=== PATIENT | female | born 1975 | race Caucasian/White ===

== ENCOUNTER 2018-07-16 14:10 | Emergency (ER) | payer BC ==
[2018-07-16 15:02] LABS: BASO % 0.2 % (0-6); GRAN % 63.8 % (47-80); HEMATOCRIT 41.8 % (35.0-47.0); HEMOGLOBIN 13.5 gm/dl (11.6-16.0); LYMPH % 28.5 % (16-45); MEAN CELL VOLUME 85.7 fl (81-97); MEAN CORPUSCULAR HEMOGLOBIN 27.7 pg (27-33); MEAN CORPUSCULAR HGB CONC 32.3 g/dl (32-36); MONO % 7.5 % (0-9); PLATELET COUNT 398 K/uL (130-400); RED BLOOD COUNT 4.88 M/uL (3.80-5.40); RED CELL DISTRIBUTION WIDTH 13.4 % (11.5-14.5); WHITE BLOOD COUNT W/O DIFF 5.5 K/uL (4.2-12.2)
[2018-07-16 15:20] LABS: INFLUENZA A NEGATIVE (NEGATIVE); INFLUENZA B NEGATIVE (NEGATIVE)
[2018-07-16] MEDS ORDERED: KETOROLAC 30 MG/ML VIAL IM ONE (15:30)
--- NOTE | 2018-07-16 15:30 | Emergency Department Record ---
History of Present Illness - General Chief Complaint: Cough Stated Complaint: HURTS TO COUGH Time Seen by Provider: 07/16/18 14:37 Source: Patient Mode of Arrival: Ambulatory Limitations: No limitations - History of Present Illness Initial Comments: pt has had a cough for a month that is getting worse. it hurts to cough. cough is productive a small amt. she has sinus congestion MD Complaint: Cough, Nasal congestion, Sinus pain Onset/Timin -: Days(s) Severity: Moderate Severity scale (1-10): 7 Quality: Burning Consistency: Constant Improves With: Nothing Worsens With: Deep breaths Context: Sick contacts Associated Symptoms: Chills, Cough, Nasal congestion, Shortness of breath - Related Data Home Medications Medication Instructions Recorded Confirmed Last Taken Ibuprofen [Ibu] 600 mg PO Q6H PRN 07/16/18 Unknown Vilazodone HCl [Viibryd] 40 mg PO DAILY 07/16/18 07/16/18 07/16/18 Previous Rx's Medication Instructions Recorded Azithromycin [Zithromax] 250 mg PO DAILY #6 tab 07/16/18 Ibuprofen [Motrin 600Mg] 600 mg PO Q6H #20 tablet 07/16/18 Allergies Allergy/AdvReac Type Severity Reaction Status Date / Time aspirin Allergy HIVES Verified 07/16/18 14:15 ciprofloxacin [From Cipro] Allergy HIVES Verified 07/16/18 14:15 ciprofloxacin HCl Allergy HIVES Verified 07/16/18 14:15 [From Cipro] Penicillins Allergy HIVES Verified 07/16/18 14:15 Sulfa (Sulfonamide Allergy HIVES Verified 07/16/18 14:15 Antibiotics) Travel Screening - Travel/Exposure Within Last 30 Days Have you traveled within the last 30 days?: No - Travel/Exposure Within Last Year Have you traveled outside the [place] in the last year?: No - Additonal Travel Details Have you been exposed to anyone with a communicable illness?: No - Travel Symptoms Symptom Screening: None Review of Systems Reviewed: No additional complaints except as noted below Constitutional: Reports: As per HPI. Denies: Chills, Fever, Malaise, Night sweats, Weakness, Weight change Eyes: Reports: As per HPI. Denies: Eye discharge, Eye pain, Photophobia, Vision change ENT: Reports: As per HPI. Denies: Congestion, Dental pain, Ear pain, Epistaxis , Hearing loss, Throat pain Respiratory: Reports: As per HPI, Cough, Dyspnea. Denies: Hemoptysis, Stridor, Wheezes Cardiovascular: Reports: As per HPI. Denies: Arrhythmia, Chest pain, Dyspnea on exertion, Edema, Murmurs, Orthopnea, Palpitations, Paroxysmal nocturnal dyspnea, Rheumatic Fever, Syncope Endocrine: Reports: As per HPI. Denies: Fatigue, Heat or cold intolerance, Polydipsia, Polyuria Gastrointestinal: Reports: As per HPI. Denies: Abdominal pain, Constipation, Diarrhea, Hematemesis, Hematochezia, Melena, Nausea, Vomiting Genitourinary: Reports: As per HPI. Denies: Abnormal menses, Discharge, Dyspareunia, Dysuria, Frequency, Hematuria, Incontinence, Retention, Urgency Musculoskeletal: Reports: As per HPI. Denies: Arthralgia, Back pain, Gout, Joint swelling, Myalgia, Neck pain Skin: Reports: As per HPI. Denies: Bruising, Change in color, Change in hair/ nails, Lesions, Pruritus, Rash Neurological: Reports: As per HPI. Denies: Abnormal gait, Confusion, Headache, Numbness, Paresthesias, Seizure, Tingling, Tremors, Vertigo, Weakness Psychiatric: Reports: As per HPI. Denies: Anxiety, Auditory hallucinations, Depression, Homicidal thoughts, Suicidal thoughts, Visual hallucinations Hematological/Lymphatic: Reports: As per HPI. Denies: Anemia, Blood Clots, Easy bleeding, Easy bruising, Swollen glands Past Medical History - SOCIAL HISTORY Smoking Status: Never smoker Alcohol Use: None Drug Use: None - RESPIRATORY Hx Respiratory Disorders: No - CARDIOVASCULAR Hx Cardio Disorders: No - NEURO Hx Neuro Disorders: No - GI Hx GI Disorders: No - Hx Genitourinary Disorders: No - ENDOCRINE Hx Endocrine Disorders: Yes Hx Thyroid Disease: Yes - MUSCULOSKELETAL Hx Musculoskeletal Disorders: Yes Comment:: neck injury - PSYCH Hx Psych Problems: Yes Hx Depression: Yes - HEMATOLOGY/ONCOLOGY Hx Hematology/Oncology Disorders: No Family Medical History Any Significant Family History?: Yes Hx HTN: Mother Hx Resp Disorders: Mother Physical Exam - General General Appearance: Alert, Oriented x3, Cooperative, Mild distress - Head Head exam: Normal inspection - Eye Eye exam: Normal appearance, PERRL, EOMI Pupils: Normal accommodation - ENT ENT exam: Normal exam, Mucous membranes moist, Normal external ear exam, Normal orophraynx, TM's normal bilaterally Ear exam: Normal external inspection. negative: External canal tenderness Nasal Exam: Normal inspection. negative: Discharge, Sinus tenderness Mouth exam: Normal external inspection, Tongue normal Teeth exam: Normal inspection. negative: Dental caries Throat exam: Normal inspection. negative: Tonsillar erythema, Tonsillar exudate - Neck Neck exam: Normal inspection, Full ROM. negative: Tenderness - Respiratory Respiratory exam: Normal lung sounds bilaterally. negative: Respiratory distress - Cardiovascular Cardiovascular Exam: Regular rate, Normal rhythm, Normal heart sounds - GI/Abdominal GI/Abdominal exam: Soft, Normal bowel sounds. negative: Tenderness - Rectal Rectal exam: Deferred - exam: Deferred - Extremities Extremities exam: Normal inspection, Full ROM, Normal capillary refill. negative: Tenderness - Back Back exam: Reports: Normal inspection, Full ROM. Denies: Muscle spasm, Rash noted, Tenderness - Neurological Neurological exam: Alert, CN II-XII intact, Normal gait, Oriented X3 - Psychiatric Psychiatric exam: Normal affect, Normal mood - Skin Skin exam: Dry, Intact, Normal color, Warm Course Vital Signs 07/16/18 14:19 Temperature 98.3 F Pulse Rate 70 Respiratory 20 Rate Blood Pressure 137/83 Pulse Ox 97 Medical Decision Making - Lab Data Result diagrams: 07/16/18 14:55 Lab Results 07/16/18 07/16/18 Range/Units 14:55 14:55 WBC 5.5 (4.2-12.2) K/uL RBC 4.88 (3.80-5.40) M/uL Hgb 13.5 (11.6-16.0) gm/dl Hct 41.8 (35.0-47.0) % MCV 85.7 (81-97) fl MCH 27.7 (27-33) pg MCHC 32.3 (32-36) g/dl RDW 13.4 (11.5-14.5) % Plt Count 398 (130-400) K/uL MPV 9.0 (7.4-10.4) fl Gran % 63.8 (47-80) % Lymphocytes % 28.5 (16-45) % Monocytes % 7.5 (0-9) % Eosinophils % 0.0 (0-6) % Basophils % 0.2 (0-6) % Influenza Type A Ag Negative (NEGATIVE) Influenza Type B Ag Negative (NEGATIVE) Disposition Disposition: Discharge Clinical Impression: Pneumonia Qualifiers: Pneumonia type: due to unspecified organism Laterality: bilateral Lung location : unspecified part of lung Qualified Code(s): J18.9 - Pneumonia, unspecified organism Disposition: Home, Self-Care Condition: (1) Good Instructions: Pneumonia (ED) Additional Instructions: follow up with family doctor. return sooner if worse. push fluids. motrin with food for pain. have repeat chest xray in 4 wks to make sure pneumonia has resolved and that there is no residual findings Prescriptions: Azithromycin [Zithromax] 250 mg PO DAILY #6 tab Ibuprofen [Motrin 600Mg] 600 mg PO Q6H #20 tablet Forms: Patient Portal Access Quality - Quality Measures Quality Measures: N/A - Blood Pressure Screening Does Patient Have Any of the Following: No Blood Pressure Classification: Pre-Hypertensive BP Reading Systolic Measurement: 137 Diastolic Measurement: 83 Screening for High Blood Pressure: < Pre-Hypertensive BP, F/U Documented > [ G8950] Pre-Hypertensive Follow-up Interventions: Follow-up with rescreen every year.
--- NOTE | 2018-07-18 20:23 | RADIOLOGY REPORT ---
EXAM: CHEST 2 VIEWS HISTORY: PATIENT HAS A HISTORY OF COUGH. TECHNIQUE: Two views of the chest are provided along with a comparison study dated 04/13/2014. FINDINGS: The cardiomediastinal silhouette is within normal limits for size and contour. Symone appear unremarkable. Patchy infiltrates are identified within the right upper and right lower lobes. No pneumothorax is noted. No pleural effusions are identified. IMPRESSION: PATCHY INFILTRATES ARE IDENTIFIED WITHIN THE RIGHT UPPER AND RIGHT LOWER LOBE SUGGESTING PNEUMONIA. FOLLOW-UP PA AND LATERAL VIEWS OF THE CHEST CAN BE OBTAINED UNTIL RESOLUTION OF FINDINGS. JOB NUMBER: [id number] [facility]
== END 2018-07-16 16:00 | disposition home or self-care (01) ==
LOC: ER 14:10
DX: J18.1 Lobar pneumonia, unspecified organism (principal)
CPT/HCPCS: 71046; 85025; 87400; 96372; 99283; 99284; J1885

== ENCOUNTER 2018-10-06 19:31 | Emergency (ER) | payer BC ==
[2018-10-06] MEDS ORDERED: KETOROLAC 30 MG/ML VIAL IVP ONE (19:47)
--- NOTE | 2018-10-06 19:53 | Emergency Department Record ---
History of Present Illness - General Chief Complaint: Abdominal Pain Stated Complaint: ABD PAIN Time Seen by Provider: 10/06/18 19:46 Source: Patient Mode of Arrival: Ambulatory Limitations: No limitations - History of Present Illness Initial Comments: 43 yo female presents to ED for progressively worsening lower abdominal pain symptoms that began 5 days ago. Patient denies fevers, chills, or urinary symptoms, denies nausea/vomiting symptoms. Patient describes her symptoms as "cramping", denies flank pain symptoms. Patient reports previous history of c- section x 1, D&C x 2, denies other abdominal surgeries. Patient has been taking Ibuprofen and Onemo with some improvement in her pain symptoms. MD Complaint: Abdominal pain Onset/Timin -: Days(s) Location: Suprapubic, LLQ, RLQ Radiation: Back Severity: Moderate Severity scale (1-10): 8 Quality: Cramping Consistency: Constant Improves With: Nothing Worsens With: Other Context: Other Associated Symptoms: Denies other symptoms - Related Data LMP (females 10-50): Current Patient : No Previous Rx's Medication Instructions Recorded Naproxen [Naprosyn] 500 mg PO Q12H #30 tab 10/06/18 Allergies Allergy/AdvReac Type Severity Reaction Status Date / Time aspirin Allergy HIVES Unverified 07/22/18 17:44 ciprofloxacin [From Cipro] Allergy HIVES Unverified 07/22/18 17:44 ciprofloxacin HCl Allergy HIVES Unverified 07/22/18 17:44 [From Cipro] Penicillins Allergy HIVES Unverified 07/22/18 17:44 Sulfa (Sulfonamide Allergy HIVES Unverified 07/22/18 17:44 Antibiotics) Travel Screening - Travel/Exposure Within Last 30 Days Have you traveled within the last 30 days?: No - Travel Symptoms Symptom Screening: Stomach Pain Review of Systems Constitutional: Denies: Chills, Fever, Malaise, Night sweats Eyes: Denies: Eye discharge, Eye pain ENT: Denies: Congestion, Ear pain Respiratory: Denies: Cough, Dyspnea Cardiovascular: Denies: Chest pain, Dyspnea on exertion Endocrine: Denies: Fatigue, Heat or cold intolerance Gastrointestinal: Reports: Abdominal pain. Denies: Nausea, Vomiting Genitourinary: Denies: Incontinence, Retention Musculoskeletal: Denies: Arthralgia, Back pain Skin: Denies: Bruising, Change in color Neurological: Denies: Abnormal gait, Confusion, Headache, Seizure Psychiatric: Denies: Anxiety Hematological/Lymphatic: Denies: Anemia, Blood Clots Past Medical History - SOCIAL HISTORY Smoking Status: Never smoker - RESPIRATORY Hx Respiratory Disorders: No - CARDIOVASCULAR Hx Cardio Disorders: No - NEURO Hx Neuro Disorders: No - GI Hx GI Disorders: No - Hx Genitourinary Disorders: No - ENDOCRINE Hx Endocrine Disorders: Yes Hx Thyroid Disease: Yes - MUSCULOSKELETAL Hx Musculoskeletal Disorders: Yes Comment:: neck injury - PSYCH Hx Psych Problems: Yes Hx Depression: Yes - HEMATOLOGY/ONCOLOGY Hx Hematology/Oncology Disorders: No Family Medical History Any Significant Family History?: Yes Hx HTN: Mother Hx Resp Disorders: Mother Physical Exam - General General Appearance: Alert, Oriented x3, Cooperative, Mild distress Limitations: No limitations - Head Head exam: Atraumatic, Normocephalic, Normal inspection Head exam detail: negative: Abrasion, Contusion, Dotson's sign, General te nderness, Hematoma, Laceration - Eye Eye exam: Normal appearance. negative: Conjunctival injection, Periorbital swelling, Periorbital tenderness, Scleral icterus - ENT Ear exam: negative: Auricular hematoma, Auricular trauma Nasal Exam: negative: Active bleeding, Discharge, Dried blood, Foreign body Mouth exam: negative: Drooling, Laceration, Muffled voice, Tongue elevation - Neck Neck exam: Normal inspection. negative: Meningismus, Tenderness - Respiratory Respiratory exam: Normal lung sounds bilaterally. negative: Rales, Respiratory distress, Rhonchi, Stridor - Cardiovascular Cardiovascular Exam: Regular rate, Normal rhythm, Normal heart sounds - GI/Abdominal GI/Abdominal exam: Soft, Tenderness (Mild TTP lower quadrants/suprapubic region, no rebound/guarding symptoms are present.). negative: Rebound, Rigid - Rectal Rectal exam: Deferred - exam: Deferred - Extremities Extremities exam: Normal inspection. negative: Pedal edema, Tenderness - Back Back exam: Denies: CVA tenderness (R), CVA tenderness (L) - Neurological Neurological exam: Alert, Normal gait, Oriented X3 - Psychiatric Psychiatric exam: Normal affect, Normal mood - Skin Skin exam: Normal color. negative: Abrasion Type of lesion: negative: abrasion Course Vital Signs 10/06/18 19:42 Pulse Rate 61 Respiratory 16 Rate Blood Pressure 148/90 Pulse Ox 95 - Reevaluation(s) Reevaluation #1: 10/06/18 20:16 Laboratory studies were reviewed and are grossly unremarkable for an acute process. Reevaluation #2: 10/06/18 20:44 Patient is back from CT imaging, reports that her pain symptoms are improved from 8/10 to 3/10. CT results are pending at this time. Reevaluation #3: 10/06/18 21:25 CT Abdomen and Pelvis: Enlargement of the uterus ? PID vs. endometriosis Patient was updated on all results, denies vaginal discharge, reports > 1 year from her last intercourse. PID seems very unlikely as a result. Will treat for probable endometriosis with Naprosyn as directed. Patient appears stable for discharge at this time. Medical Decision Making - Lab Data Result diagrams: 10/06/18 19:50 10/06/18 19:50 Disposition Disposition: Discharge Clinical Impression: Uterine inflammation Disposition: Home, Self-Care Condition: (2) Stable Instructions: Menorrhagia (ED) Additional Instructions: Return to ED if your symptoms worsen or if you have any concerns. Naprosyn as directed. Follow-up with your family doctor in 3-5 days as directed. Prescriptions: Naproxen [Naprosyn] 500 mg PO Q12H #30 tab.dr Forms: Patient Portal Access Time of Disposition: 21:25 Quality - Quality Measures Quality Measures: N/A - Blood Pressure Screening Does Patient Have Any of the Following: No Blood Pressure Classification: Hypertensive Reading Systolic Measurement: 148 Diastolic Measurement: 90 Screening for High Blood Pressure: < First Hypertensive BP, F/U Documented > [G8950] First Hypertensive Follow-up Interventions: Referral to alternative/primary care provider.
[2018-10-06 19:58] LABS: ABSOLUTE NEUTROPHIL COUNT 3.74; BASO % 0.3 % (0-6); GRAN % 53.5 % (47-80); HEMATOCRIT 40.2 % (35.0-47.0); HEMOGLOBIN 12.9 gm/dl (11.6-16.0); LYMPH % 38.8 % (16-45); MEAN CELL VOLUME 86.6 fl (81-97); MEAN CORPUSCULAR HEMOGLOBIN 27.8 pg (27-33); MEAN CORPUSCULAR HGB CONC 32.1 g/dl (32-36); MEAN PLATELET VOLUME 9.3 fl (7.4-10.4); MONO % 7.4 % (0-9); PLATELET COUNT 457 K/uL (130-400); RED BLOOD COUNT 4.64 M/uL (3.80-5.40); RED CELL DISTRIBUTION WIDTH 13.2 % (11.5-14.5)
[2018-10-06 19:59] LABS: URINE APPEARANCE CLOUDY; URINE BILIRUBIN NEGATIVE (NEGATIVE); URINE BLOOD LARGE (NEGATIVE); URINE COLOR YELLOW; URINE GLUCOSE (UA) NEGATIVE (NEGATIVE); URINE KETONE NEGATIVE (NEGATIVE); URINE LEUKOCYTE ESTERASE TRACE (NEGATIVE); URINE NITRITE NEGATIVE (NEGATIVE); URINE PROTEIN TRACE (NEGATIVE); URINE UROBILINOGEN 0.2 E.U./dL (0.20 - 1.00)
[2018-10-06] MEDS ORDERED: 0.9 % SODIUM CHLORIDE 1000ML 1,000 ML IV SCH (20:00)
[2018-10-06 20:05] LABS: URINE BACTERIA 1+; URINE EPITHELIAL CELLS TNTC (FEW)
[2018-10-06 20:06] LABS: BLOOD UREA NITROGEN 10 mg/dL (6-20); CREATININE 0.7 mg/dL (0.5-0.9); EST GLOMERULAR FILTRATION RATE > 60 mL/min
[2018-10-06 20:06] LABS: HCG,QUALITATIVE URINE NEGATIVE (NEGATIVE)
[2018-10-06 20:07] LABS: TOTAL PROTEIN 6.5 g/dL (6.6-8.7)
[2018-10-06 20:09] LABS: GLUCOSE,RANDOM 100 mg/dL (74-109)
[2018-10-06 20:12] LABS: ALB/GLOB RATIO 1.7 (1.1-1.8); ALBUMIN 4.1 g/dL (4.0-5.0); ALKALINE PHOSPHATASE 93 U/L (35-104); ALT/SGPT 10 U/L (<33); AST/SGOT 10 U/L (10.0-35.0)
--- NOTE | 2018-10-09 21:50 | CT SCAN REPORT ---
EXAM: CT SCAN ABDOMEN/PELVIS W CONTRAST HISTORY: PELVIC PAIN. TECHNIQUE: Helical CT scan of the abdomen and pelvis obtained after the administration of intravenous contrast. No oral contrast administered. The type and amount of the contrast is recorded in the patient's medical record. COMPARISON: CT abdomen and pelvis 03/13/2013. FINDINGS: Lung bases are clear. Liver has upper normal size. Spleen is normal. No calcified gallstones. Pancreas, adrenal glands, and kidneys are within normal limits. No adenopathy. Bowel has normal caliber. Appendix is normal. There is fat stranding surrounding the uterus and both ovaries. The uterus is mildly enlarged since previous exam, and measures 10.5 cm in length with the cervix and 6.9 cm transverse. Ovaries are not enlarged. 2 cm parapelvic cysts appear to the left ovary again seen. No free fluid in the pelvis. No extraluminal gas. Bony structures are unremarkable. IMPRESSION: 1. THERE IS ABNORMALITY IN THE PELVIS WITH INFLAMMATORY CHANGE AROUND THE UTERUS AND BOTH OVARIES, RAISING THE CONCERN FOR PELVIC INFLAMMATORY DISEASE/MYOMETRITIS. ALSO, QUESTION WHETHER THE PATIENT HAS HISTORY OF ENDOMETRIOSIS. 2. NORMAL APPENDIX. JOB NUMBER: [id number] [facility]
== END 2018-10-06 21:32 | disposition home or self-care (01) ==
LOC: ER 19:31
DX: N85.2 Hypertrophy of uterus (principal); N73.2 Unspecified parametritis and pelvic cellulitis; R10.84 Generalized abdominal pain
CPT/HCPCS: 99284 ×2; 96374; 85025; 80053; 81001; 81025; 74177; Q9967; J1885; J7030